=== PATIENT | female | born 1965 | race Caucasian/White ===

== ENCOUNTER → 2016-07-28 | Outpatient (CLI) | payer BC ==
[~2016-07-28] VITALS: Ht 165.1 cm; Wt 84.6 kg
[~2016-07-28] MED LIST: ALLEGRA ALLERGY60 MG PO; CALCIUM CITRAT200 MG PO; CIPRO 500MG TA500 MG PO; CITRACAL + D CA1 TAB PO; EXCEDRIN ES PO; FLONASE NASAL S16 GM NS; MULTI VITAMINS1 TAB PO; PREMARIN 1.251.25 MG PO; PRIL40 PO; PRILOSEC10 MG PO; TYLENOL 325MG325 MG PO; TYLENOL ELIX32 MG/ML PO
[2016-07-28 16:08] VITALS: BP 99/52; PULSE 52
[2016-07-28 16:55] VITALS: BP 99/52; PULSE 52
== END ==
LOC: LIGHT 09:55
DX: Z98.84 Bariatric surgery status (principal); E66.09 Other obesity due to excess calories; Z68.31 Body mass index [BMI] 31.0-31.9, adult

== ENCOUNTER → 2016-07-28 | Outpatient (CLI) | payer BC ==
[2016-07-28 14:52] LABS: HEMATOCRIT 40.8 % (37.0-47.0); HEMOGLOBIN 13.6 g/dl (12.5-16.0); MEAN CELL VOLUME 89 fl (80.0-100.0); MEAN CORPUSCULAR HEMOGLOBIN 30 pg (27.0-31.0); MEAN CORPUSCULAR HGB CONC 33 g/dl (33.0-37.0); MEAN PLATELET VOLUME 9.2 fl (7.4-10.4); PLATELET COUNT 204 K/mm3 (130-400); RED BLOOD COUNT 4.61 M/mm3 (4.10-5.30); REDCELL DISTRIBUTION WIDTH-CV 12.4 % (11.5-14.5)
[2016-07-28 14:55] LABS: ADJUSTED CALCIUM 9.6 mg/dL (8.4-10.2); BILIRUBIN,TOTAL 1.6 mg/dL (0.0-1.0); CALCIUM 9.6 mg/dL (8.4-10.2); CREATININE, serum 0.8 mg/dL (0.52-1.25); POTASSIUM 3.5 mmol/L (3.4-5.0); TOTAL PROTEIN 6.9 gm/dL (6.4-8.2)
== END ==
LOC: COL.LAB 14:17
PROVIDERS: Surgery
DX: Z01.89 Encounter for other specified special examinations (principal)

== ENCOUNTER → 2016-09-12 | Outpatient (REF) ==
[2016-09-12 16:52] LABS: THYROID STIMULATING HORMONE 0.734 uIU/mL (0.465-4.680)
== END ==
LOC: ZLAB.WCH 16:11
PROVIDERS: Internal Medicine
DX: Z01.89 Encounter for other specified special examinations (principal)